=== PATIENT | female | born 1940 ===

== ENCOUNTER 2017-05-22 10:58 | Observation (INO) | payer OTHER, MEDICARE ==
[2017-05-15 09:52] VITALS: BMI 21.4
[2017-05-22] MEDS ORDERED: Lidocaine 2% Inj (20ml) ONE (11:20)
[2017-05-22] MEDS ORDERED: Iohexol 350mgl/ml 50 ML ONE (11:21)
[2017-05-22] MEDS ORDERED: Midazolam 2 MG/2 ML VIAL ONE ×2 (11:21→12:20)
[2017-05-22] MEDS ORDERED: Iodixanol 320 MG/ML 200 ML BOTTLE IV ONE (11:21)
[2017-05-22] MEDS ORDERED: Metoprolol 1 mg/ml Inj IVP ONE ×2 (12:22→12:30)
[2017-05-22] MEDS ORDERED: Flumazenil 0.1 mg/ml Inj (5ml) IVP ONE (12:39)
[2017-05-22] MEDS ORDERED: DOPamine 400mg/250ml D5W 400 MG/250 ML BAG IV ONE (12:41)
[2017-05-22 16:44] VITALS: O2SAT 95
[2017-05-22 18:43] VITALS: BP 113/68; PULSE 122; RESP 22
--- NOTE | 2017-05-22 20:36 | CARD ---
APPROVED REPORT EKG Measurement Heart [id number] IL [id number] <Conclusion> Sinus tachycardia ST elevation, consider inferior injury or acute infarct ACUTE PR Consider right ventricular involvement in acute inferior infarct Abnormal ECG
--- NOTE | 2017-06-03 03:32 | CARDCATH ---
PROCEDURE DATE: 05/22/2017 PROCEDURES: Percutaneous coronary intervention and drug-eluting stent placement of the left circumflex coronary artery. REFERRING PHYSICIAN: Shira Sheridan MD. PERFORMING PHYSICIAN: Jomar Wu MD. CLINICAL INDICATIONS: 1. Chest pain. 2. [id number] myocardial infarction. 3. Hypertension. 4. Hyperlipidemia. 5. Diabetes. DESCRIPTION OF PROCEDURE: After informed consent, the patient was prepped and draped in the usual sterile fashion. A 2% lidocaine was given in the right groin for local anesthesia. Using micropuncture technique, 6-Qatari sheath was introduced into right common femoral artery. The patient was preloaded with aspirin, Plavix and IV heparin. ACT was maintained above 250. A 6-Qatari XBLAD 3.5 guide catheter engaged into the left main coronary artery. Contrast injected. Left coronary angiogram was performed. Left circumflex has a 95% mid critical stenosis. The lesion was threaded using runthrough coronary wire. Pre-dilated using 2.5 x 12 compliant balloon. Stented with 2.75 x 18 XIENCE Alpine drug-eluting stent. Excellent final angiographic results with brisk DELICIA-3 flow noted. The patient tolerated the procedure well. The patient was transferred to [facility] for further observation. CONCLUSION: Successful percutaneous coronary intervention of the left circumflex coronary artery with a drug-eluting stent placement. Radiological supervision and radiological interpretation of the above-mentioned procedure performed. Jomar Wu MD
== END 2017-05-22 17:30 | disposition short-term general hospital (02) ==
LOC: CATH 10:58 → CCU 13:23 → UNDOADMOB 13:45 → CCU 13:45
PROVIDERS: ADMIT Internal Medicine Cardiovascular Disease; ATTEND Internal Medicine Cardiovascular Disease
DX: I21.4 Non-ST elevation (NSTEMI) myocardial infarction (principal); I10 Essential (primary) hypertension; E11.9 Type 2 diabetes mellitus without complications; E78.5 Hyperlipidemia, unspecified